=== PATIENT | female | born 1935 | race Caucasian/White ===

== ENCOUNTER 2023-05-29 15:05 | Emergency (ER) | payer OTHER, SELFPAY ==
[2023-05-29] VITALS (9 sets, daily range): BP systolic 107–183; BP diastolic 65–79
--- NOTE | 2023-05-29 17:02 | ED.GENMED ---
History of Present Illness
<Edyta Narayanan REAL ESTATE DEVELOPMENT MANAGER - Last Filed: 05/29/23 18:31>
General
Chief Complaint: Back Pain
Source: patient and spouse
Exam Limitations: none
Time Seen by Provider: 05/29/23 17:02
Nursing documentation reviewed up to this point in time: agreed with
Travel History
Have you had any contact with someone who has COVID-19?: No
Do you have any symptoms of coronavirus? Fever > 100 degrees, chills, cough, shortness of breath, sore throat, loss of taste or smell, muscle aches, or headache?: No
History of Present Illness
History of Present Illness:
87 yo female w h/o sleep apnea on CPAP, [place], CABG, Aortic Valve repair 2013, GERD, presents stating for past 2 days has had recurring mid back pains 'like when you eat ice cream too fast,' gets it several times throughout the day. Also intermittent
fleeting lightheadedness, intermittent nausea, indigestion immediately after eating anything (relieved with sips of Sambucca), intermittent pressure across upper chest, intermittent 'strange feeling in both my arms, I can't describe it, it's very
weird.'
Pt states all symptoms do not seem related or at same time as the other. Last episode of symptoms was 40 minutes ago in the waiting room with 'indigestion, nausea, burping with a few minutes of back pain.
Pt states she is asymptomatic now.
Past History
<Edyta Narayanan REAL ESTATE DEVELOPMENT MANAGER - Last Filed: 05/29/23 18:31>
Past History
ED Past Medical History: CAD, GERD (7 yrs ago, just started bothering her again 2 days ago.), HTN, Hypercholesterolemia, [place], Valvular disease and Other (Sleep apnea on CPAP)
ED Past Surgical History: Cardiac (Aortic valve replaced), Gynecological and Tonsilectomy
Social History
Tobacco: Non-smoker
Alcohol: None
Personal:
Living: with family
Employment: Retired
Family History
Family History: Other
Review of Systems
<Edyta Narayanan, REAL ESTATE DEVELOPMENT MANAGER - Last Filed: 05/29/23 18:31>
Review of Systems
Allergies reviewed?: Yes
All Other Systems: ROS reviewed and negative except as documented in HPI and ROS
Constitutional: Denies fever or fatigue
Respiratory: Denies trouble breathing
Cardiac: Reports chest pain (Intermittent past 2 days); Denies diaphoresis, palpitations or syncope
ABD/GI: Reports nausea (Anytime she eats anything); Denies abdominal pain, vomiting, diarrhea, constipated, bloody stools, black stools or anorexia
: Denies dysuria or difficulty voiding
Musculoskeletal: Reports no symptoms; Denies edema or neck pain
Skin: Reports no symptoms
Neurological: Reports other (Fleeting episodes of lightheadedness past 2 days); Denies headache or weakness
Phy Exam
<Edyta V. Lady, REAL ESTATE DEVELOPMENT MANAGER - Last Filed: 05/29/23 18:31>
Physical Exam
Physical Exam:
GENERAL: No acute distress. A&Ox3.
CONSTITUTIONAL: Afebrile.
EYES: PERRL, conjunctivae normal
Neck: Supple
ENMT: moist mucus membranes, Pharynx nl
RESPIRATORY: Regular respirations, nonlabored, lungs clear.
CARDIOVASCULAR: Regular rate and rhythm, no murmurs, no rubs. Equal radial and pedal pulses. BP equal bilaterally.
GI: Soft, nontender, normal BS
MUSCULOSKELETAL: Moves with ease. Well perfused. No edema
SKIN: Warm, dry, pink
PSYCH: Normal mood and affect. Well kept, interactive and appropriate
NEUROLOGIC: Awake, alert and oriented. No focal neurological deficits
Course
<Edyta Narayanan, REAL ESTATE DEVELOPMENT MANAGER - Last Filed: 05/29/23 18:31>
Orders/Labs/Results
Orders:
Orders
05/29/23 15:15
EKG [Electrocardiogram (*1)] Urgent
Reason for Study: Chest Pain
EKG- Treatment ONCE
05/29/23 17:00
Complete Blood Count/With Diff Urgent
Comprehensive Metabolic Panel Urgent
Lipase Urgent
Comment: ADDON
NT-proBNP Urgent
PTT Urgent
Troponin I Urgent
05/29/23 17:46
CT Chest/abd/pelvis Angio W/wo Urgent
Comment:
Reason For Exam: thoracic pain, pain down both arms
05/29/23 18:03
Add On- LAB Urgent
Tests Added?: lipase
05/29/23 20:30
Mag Hydrox/Al Hydrox/Simeth [Maalox] 30 ml Phenobarb/Hyoscy/Atropine/Scop [] 10 ml PO NOW
05/29/23 20:32
Mag Hydrox/Al Hydrox/Simeth [Maalox] 30 ml .ROUTE .STK-MED ONE
Phenobarb/Hyoscy/Atropine/Scop [] 10 ml .ROUTE .STK-MED ONE
Abnormal Lab Results
05/29/23
17:00
BUN 22 H mg/dl
(7-17)
Glucose 126 H mg/dl
(70-99)
05/29/23 17:00
05/29/23 17:00
Vital Signs
Initial and Last Documented VS:
Initial Vital Signs
Temp Pulse Resp BP Pulse Ox
97.8 F 65 18 107/77 98
05/29/23 15:12 05/29/23 15:12 05/29/23 15:12 05/29/23 15:12 05/29/23 15:12
Last Documented Vital Signs
Temp Pulse Resp BP Pulse Ox
97.8 F 68 18 178/79 98
05/29/23 15:12 05/29/23 20:17 05/29/23 20:17 05/29/23 20:17 05/29/23 20:17
<Osvaldo Jose, DO - Last Filed: 05/29/23 20:41>
Orders/Labs/Results
Orders:
Orders
05/29/23 15:15
EKG [Electrocardiogram (*1)] Urgent
Reason for Study: Chest Pain
EKG- Treatment ONCE
05/29/23 17:00
Complete Blood Count/With Diff Urgent
Comprehensive Metabolic Panel Urgent
Lipase Urgent
Comment: ADDON
NT-proBNP Urgent
PTT Urgent
Troponin I Urgent
05/29/23 17:46
CT Chest/abd/pelvis Angio W/wo Urgent
Comment:
Reason For Exam: thoracic pain, pain down both arms
05/29/23 18:03
Add On- LAB Urgent
Tests Added?: lipase
05/29/23 20:30
Mag Hydrox/Al Hydrox/Simeth [Maalox] 30 ml Phenobarb/Hyoscy/Atropine/Scop [] 10 ml PO NOW
05/29/23 20:32
Mag Hydrox/Al Hydrox/Simeth [Maalox] 30 ml .ROUTE .STK-MED ONE
Phenobarb/Hyoscy/Atropine/Scop [] 10 ml .ROUTE .STK-MED ONE
Abnormal Lab Results
05/29/23
17:00
BUN 22 H mg/dl
(7-17)
Glucose 126 H mg/dl
(70-99)
05/29/23 17:00
05/29/23 17:00
Vital Signs
Initial and Last Documented VS:
Initial Vital Signs
Temp Pulse Resp BP Pulse Ox
97.8 F 65 18 107/77 98
05/29/23 15:12 05/29/23 15:12 05/29/23 15:12 05/29/23 15:12 05/29/23 15:12
Last Documented Vital Signs
Temp Pulse Resp BP Pulse Ox
97.8 F 68 18 178/79 98
05/29/23 15:12 05/29/23 20:17 05/29/23 20:17 05/29/23 20:17 05/29/23 20:17
<Edyta Narayanan REAL ESTATE DEVELOPMENT MANAGER - Last Filed: 05/29/23 18:31>
MDM/Problems Addressed
Differential Diagnosis Includes:
AK, AAA, GERD, esophageal spasms, esophagitis
MDM/Problems Addressed:
87 yo female w h/o sleep apnea on CPAP, [place], CABG, Aortic Valve repair 2013, GERD, presents stating for past 2 days has had recurring mid back pains 'like when you eat ice cream too fast,' gets it several times throughout the day. Also intermittent
fleeting lightheadedness, intermittent nausea, indigestion immediately after eating anything (relieved with sips of Sambucca), intermittent pressure across upper chest, intermittent 'strange feeling in both my arms, I can't describe it, it's very
weird.'
Pt states all symptoms do not seem related or at same time as the other. Last episode of symptoms was 40 minutes ago in the waiting room with 'indigestion, nausea, burping with a few minutes of back pain.
Pt states she is asymptomatic now.
NAD
EKG NSR, no change from last
05/29/2023 1743 PM
CBC normal
CMP normal save for mildly elevated BUN at 22
Chest abdomen [address] with/without IV contrast pending
Case discussed with Dr. Jose who will assume care from this point
Chronic conditions affecting care:
sleep apnea, GERD
Chronic conditions affecting care: Other (Aortic valve repair, CABG 2013)
<Edyta Narayanan, REAL ESTATE DEVELOPMENT MANAGER - Last Filed: 05/29/23 18:31>
*Pulse Oximetry
Patient hypoxic: no
*EKG
EKG Intrepretation Date: 05/29/23
Interpretation: normal
Comparison EKG: no changes
Heart Rate: 69
Rate: normal
Rhythm: sinus
[place]: normal axis
Interval: normal interval
Ischemia: no ischemia
<Osvaldo Jose, DO - Last Filed: 05/29/23 20:41>
*Critical Care Note
Total Time (30-74mins, 75-104mins- exclusive of procedures): Not Applicable
<Osvaldo Jose, DO - Last Filed: 05/29/23 20:41>
Update Note
Update Note:
[address] scan noted troponin noted symptoms on and off for 2 days patient states her symptoms returned almost immediately after eating a sandwich feels like her brain feels in her back we will try some Maalox and
8:39 PM patient feeling better
ED Attending Note
<Edyta Narayanan REAL ESTATE DEVELOPMENT MANAGER - Last Filed: 05/29/23 18:31>
-
Portions of this chart may have been created with voice recognition software.� Occasional wrong word or��sound alike� substitutions may have occurred due to the inherent limitations of voice recognition software.
<Osvaldo Jose, - Last Filed: 05/29/23 20:41>
ED Attending Note
Patient seen and examined by attending physician: Yes
I performed the substantive portion of visit, reviewed & personally made and approve the management plan that is documented in note by myself or MOOKIE.: Yes
ED Attending Note:
Seen with nurse practitioner. Agree with assessment and plan 87-year-old female CAD status post stenting and AVR intermittent back and arm pain chest pain looks well here asymptomatic here we will check troponin CT angiogram of the chest
Discharge Plan
Departure
Patient Disposition: Home (Routine Discharge)
Date of Disposition: 05/29/23
Time of Disposition: 20:39
Patient with high blood pressure during this ER visit?: No
Condition: Good
Discharge Problem:
Back pain, Gastritis
Instructions: Ulcer and Gastritis Diet, Gastritis ED, Back Pain
Prescriptions:
New
alum-mag hydroxide-simeth [Maalox Advanced] 200-200-20 mg/5 mL suspension
15 ml PO QID PRN (Reason: indigestion) Qty: 3000 0RF
No Action
cholecalciferol (vitamin D3) [Vitamin D3] 2,000 UNIT capsule
2,000 unit PO DAILY
acetaminophen [Tylenol Extra Strength] 500 MG tablet
500 mg PO PRN PRN (Reason: pain)
tobramycin 1 DROP drops
1 drp RIGHT EYE Q8
clopidogrel 75 MG tablet
75 mg PO DAILY Qty: 30 2RF
furosemide 80 MG tablet
20 - 40 mg PO DAILY
Patient Comments:
Dose according to weight
diphenhydramine HCl [Benadryl] 25 MG capsule
25 mg PO PRN PRN (Reason: NEEDED FOR SLEEP)
fluticasone furoate [Veramyst] 10 GM spray,suspension
2 spray intranasal PRN PRN (Reason: NEEDED FOR CONGESTION)
clindamycin HCl 300 MG capsule
600 mg PO PRN PRN (Reason: before dental procedure)
cyanocobalamin (vitamin B-12) 1,000 MCG tablet
1,000 mcg PO DAILY
Polytrim Eye Drops
1 drp APPLIC .LEFT EYE
potassium chloride [Klor-Con M20] 20 MEQ tablet,ER particles/crystals
10 meq PO DAILY
Referrals:
NONE,* [Family Provider] -
Interventions
Interventions:
*Risk Screen - Suicide Last Done: 05/29/23 17:19
*General Assessment Last Done: 05/29/23 15:12
*Neglect/Abuse Screening Last Done: 05/29/23 17:19
ED- Fall Risk Assessment Last Done: 05/29/23 17:19
*ED COVID-19 Vaccine History Last Done: 05/29/23 15:12
[2023-05-29 17:11] LABS: % Basophils 1.1 % (0-2); % Eosinophils 1.5 % (0-6); % Immature Granulocytes 0.5 % (0-0.5); % Lymphocytes 25.4 % (20.5-51.1); % Neutrophils 64.5 % (42.2-75.2); Absolute Basophils 0.1 10^3/uL (0-0.2); Absolute Eosinophils 0.1 10^3/uL (0-0.7); Absolute Lymphocytes 1.6 10^3/uL (1.2-3.4); Absolute Monocytes 0.4 10^3/uL (0.1-0.6); Absolute Neutrophils 3.9 10^3/uL (1.4-6.5); Hematocrit 44.3 % (37.0-47.0); Hemoglobin 15.1 g/dL (12.0-16.0); Mean Corp Hgb Conc. 34.1 g/dL (33.0-37.0); Mean Corpuscular Hgb 30.6 pg (27.0-31.0); Mean Corpuscular Volume 89.7 fL (81.0-99.0); Nucleated Red Blood Cells % 0 %; Red Blood Cell Count 4.94 10^6/uL (4.20-5.40); Red Cell Dist. Width 13.6 % (11.5-14.5); White Blood Cell Count 6.1 10^3/uL (4.8-10.8)
[2023-05-29 17:26] LABS: APTT 25.6 Sec (23.4-35.0)
[2023-05-29 17:28] LABS: ALT (SGPT) 17 U/L (0-35); AST (SGOT) 31 U/L (14-36); Albumin 4.1 g/dl (3.5-5.0); Alkaline Phosphatase 62 U/L (38-126); Blood Urea Nitrogen 22 mg/dl (7-17); Calcium 9.8 mg/dl (8.4-10.2); Carbon Dioxide 30 mmol/L (22-30); Chloride 100 mmol/L (98-107); Glucose 126 mg/dl (70-99); Potassium 4.1 mmol/L (3.5-5.1); Sodium 138 mmol/L (135-145); Total Bilirubin 0.7 mg/dl (0.2-1.3); Total Protein 7.3 g/dl (6.3-8.2); eGFR > 60.00
[2023-05-29 17:39] LABS: Mean Platelet Volume 9.7 fL (7.4-10.4); NT-proBNP 406 pg/ml; Platelet Count 205 10^3/uL (130-400); Troponin I < 0.012 ng/ml
[2023-05-29 18:28] LABS: Lipase 63 U/L (23-300)
[2023-05-29] MEDS: MAALOX 40 PO (20:34)
== END 2023-05-29 20:48 | disposition home or self-care (01) ==
LOC: EMR 15:05
PROVIDERS: Emergency Medicine; EMERGENCY PHYSICIAN Emergency Medicine
DX: M54.6 Pain in thoracic spine (principal); K29.70 Gastritis, unspecified, without bleeding; R07.9 Chest pain, unspecified; R42 Dizziness and giddiness; K21.00 Gastro-esophageal reflux disease with esophagitis, without bleeding; I25.10 Atherosclerotic heart disease of native coronary artery without angina pectoris; I10 Essential (primary) hypertension; I25.2 Old myocardial infarction; G47.30 Sleep apnea, unspecified
CPT/HCPCS: 99285; 71275; 74174; 80053; 83690; 83880; 84484; 85025; 85730; 93005; Q9967

== ENCOUNTER → 2023-09-01 16:47 | Outpatient (REF) | payer OTHER, SELFPAY | LOC: RCS 16:47 | PROVIDERS: ATTENDING PHYSICIAN Family Medicine | DX: I25.10 Atherosclerotic heart disease of native coronary artery without angina pectoris (principal); I25.2 Old myocardial infarction; Z95.2 Presence of prosthetic heart valve; I35.0 Nonrheumatic aortic (valve) stenosis | CPT/HCPCS: 93306 ==

== ENCOUNTER → 2024-01-07 13:53 | Outpatient (REF) | payer OTHER, SELFPAY | LOC: WDC 13:53 | PROVIDERS: ATTENDING PHYSICIAN Family Medicine | DX: Z12.31 Encounter for screening mammogram for malignant neoplasm of breast (principal); Z78.0 Asymptomatic menopausal state | CPT/HCPCS: 77063; 77067; 77080 ==

== ENCOUNTER → 2024-05-22 09:50 | Outpatient (REF) | payer OTHER, SELFPAY | LOC: WDC 09:50 | PROVIDERS: ATTENDING PHYSICIAN Family Medicine | DX: N64.52 Nipple discharge (principal) | CPT/HCPCS: 76642; 77061; 77065 ==

== ENCOUNTER → 2024-08-21 11:01 | Outpatient (REF) | payer OTHER, SELFPAY | LOC: RCS 11:01 | PROVIDERS: ATTENDING PHYSICIAN Student in an Organized Health Care Education/Training Program; FAMILY PHYSICIAN Family Medicine | DX: Z95.2 Presence of prosthetic heart valve (principal) | CPT/HCPCS: 93306 ==

== ENCOUNTER → 2024-09-15 13:08 | Outpatient (REF) | payer OTHER, SELFPAY | LOC: RAD 13:08 | PROVIDERS: ATTENDING PHYSICIAN Family Medicine | DX: R05.3 Chronic cough (principal); R53.83 Other fatigue | CPT/HCPCS: 71046 ==

== ENCOUNTER → 2025-01-18 13:15 | Outpatient (REF) | payer OTHER, SELFPAY | LOC: WDC 13:15 | PROVIDERS: ATTENDING PHYSICIAN Family Medicine | DX: Z12.31 Encounter for screening mammogram for malignant neoplasm of breast (principal) | CPT/HCPCS: 77063; 77067 ==

== ENCOUNTER 2025-03-25 04:09 | Emergency (ER) | payer OTHER, SELFPAY ==
[2025-03-25 04:11] VITALS: BP 128/67
--- NOTE | 2025-03-25 04:14 | ED.GENMED ---
History of Present Illness
General
Chief Complaint: Heart Rate Problem
Source: patient
Exam Limitations: none
Time Seen by Provider: 03/25/25 04:10
History of Present Illness
History of Present Illness:
See MDM
Past History
Past History
ED Past Medical History: CAD, GERD (7 yrs ago, just started bothering her again 2 days ago.), HTN, Hypercholesterolemia, [place], Valvular disease and Other (Sleep apnea on CPAP)
ED Past Surgical History: Cardiac (Aortic valve replaced), Gynecological and Tonsilectomy
Social History
Tobacco: Non-smoker
Alcohol: None
Personal:
Living: with family
Employment: Retired
Family History
Family History: Other
Phy Exam
Physical Exam
Physical Exam:
See MDM
Course
Orders/Labs/Results
Orders:
Orders
03/25/25
Electrocardiogram (*1) Stat
Comment: DONE
03/25/25 04:15
Electrocardiogram (*1) Urgent
Reason for Study: Hypertension, Benign
EKG- Treatment ONCE
03/25/25 04:17
Complete Blood Count/With Diff Urgent
Comprehensive Metabolic Panel Urgent
Magnesium Urgent
03/25/25 04:18
Troponin I Urgent
03/25/25 06:35
Troponin I Urgent
Abnormal Lab Results
03/25/25
04:17
MCHC 32.1 L g/dL
(33.0-37.0)
Immature Gran % 0.6 H %
(0-0.5)
BUN 29 H mg/dl
(7-17)
Glucose 116 H mg/dl
(70-99)
Alkaline Phosphatase 131 H U/L
(38-126)
03/25/25 04:17
03/25/25 04:17
Vital Signs
Initial and Last Documented VS:
Initial Vital Signs
Temp Pulse Resp BP Pulse Ox
97.8 F 88 16 128/67 94
03/25/25 04:11 03/25/25 04:11 03/25/25 04:11 03/25/25 04:11 03/25/25 04:11
Last Documented Vital Signs
Temp Pulse Resp BP Pulse Ox
97.8 F 74 24 118/47 94
03/25/25 04:11 03/25/25 07:30 03/25/25 07:45 03/25/25 07:00 03/25/25 07:45
MDM/Problems Addressed
Differential Diagnosis Includes:
Note:
CHIEF COMPLAINT(S)
Palpitations and abnormal sensation in the arms.
HISTORY OF PRESENT ILLNESS
The patient is an 89-year-old female with no known history of atrial fibrillation, who presented with complaints of a sensation of rapid heart rate, described as 'heart racing' starting at approximately 3:00 AM. The palpitations were accompanied by
an unusual sensation in the arms. She attempted to sleep, during which she noticed the symptoms more acutely, especially when lying on her side. The episode lasted about 15 minutes. There was also a report of leg cramps. The patient has not
experienced similar palpitations before. She had called EMS when the sensation was happening. However, on arrival, all symptoms have resolved
PHYSICAL EXAM
General: Alert, no acute distress.
Skin: Warm, dry.
Head: Normocephalic, atraumatic
Neck: Appears supple, trachea midline.
Eyes, Ears, Nose, Mouth, and Throat: Moist mucous membranes
Cardiovascular: No signs of cyanosis. Regular rate and rhythm
Respiratory: Respirations are non-labored.
Abdomen: Non-distended
Musculoskeletal: No deformities. No leg edema or tenderness
Neurological: No focal neurological deficit observed.
Psychiatric: Cooperative, appropriate mood and affect.
PLAN
The patient will undergo an Electrocardiogram (EKG) and blood tests. She will be monitored for recurrence of symptoms. If the initial tests are normal, she will be advised to follow up with her regular physician for a heart monitor to detect any
recurrent episodes.
DIFFERENTIAL DIAGNOSIS
The Differential Diagnosis includes, in no particular order and is not limited to:
- Atrial fibrillation
- Supraventricular tachycardia
- Anxiety-related palpitations
- Electrolyte imbalance
- Hyperthyroidism
- Premature ventricular contractions
- Concomitant electrolyte disturbance causing muscle cramps
- Coronary artery disease
- Transient ischemic attack
- Peripheral neuropathy
SUMMARY OF ENCOUNTER
The patient, an 89-year-old female, was seen in the emergency department due to palpitations and a strange sensation in her arms occurring early in the morning. The main concern was the possibility of an arrhythmia, such as atrial fibrillation.
Initial management included monitoring and checking an EKG, with a plan for potential further investigation via a heart monitor on outpatient follow-up if initial studies are normal.
MEDICAL DECISION MAKING
-Complexity of Data Reviewed: Chronic conditions affecting care. The Differential Diagnosis includes, in no particular order and is not limited to: Atrial fibrillation, Supraventricular tachycardia, Anxiety-related palpitations, Electrolyte
imbalance, Hyperthyroidism, Premature ventricular contractions, Concomitant electrolyte disturbance causing muscle cramps, Coronary artery disease, Transient ischemic attack, Peripheral neuropathy.
-Data:
Category 1
- EKG ordered.
Category 3
- Consideration of a heart monitor for outpatient follow-up.
*Pulse Oximetry
Patient hypoxic: no
*Critical Care Note
Total Time (30-74mins, 75-104mins- exclusive of procedures): Not Applicable
ED Attending Note
-
Portions of this chart may have been created with voice recognition software.� Occasional wrong word or��sound alike� substitutions may have occurred due to the inherent limitations of voice recognition software.
Discharge Plan
Departure
Patient Disposition: Home (Routine Discharge)
Date of Disposition: 03/25/25
Time of Disposition: 07:31
Patient with high blood pressure during this ER visit?: No
Discharge Problem:
Heart palpitations
Instructions: Palpitations (DC)
Prescriptions:
No Action
cholecalciferol (vitamin D3) [Vitamin D3] 2,000 UNIT capsule
2,000 unit PO DAILY
acetaminophen [Tylenol Extra Strength] 500 MG tablet
500 mg PO PRN PRN (Reason: pain)
tobramycin 1 DROP drops
1 drp RIGHT EYE Q8
clopidogrel 75 MG tablet
75 mg PO DAILY Qty: 30 2RF
furosemide 80 MG tablet
20 - 40 mg PO DAILY
Patient Comments:
Dose according to weight
diphenhydramine HCl [Benadryl] 25 MG capsule
25 mg PO PRN PRN (Reason: NEEDED FOR SLEEP)
fluticasone furoate [Veramyst] 10 GM spray,suspension
2 spray intranasal PRN PRN (Reason: NEEDED FOR CONGESTION)
clindamycin HCl 300 MG capsule
600 mg PO PRN PRN (Reason: before dental procedure)
cyanocobalamin (vitamin B-12) 1,000 MCG tablet
1,000 mcg PO DAILY
Polytrim Eye Drops
1 drp APPLIC .LEFT EYE
potassium chloride [Klor-Con M20] 20 MEQ tablet,ER particles/crystals
10 meq PO DAILY
alum-mag hydroxide-simeth [Maalox Advanced] 200-200-20 mg/5 mL suspension
15 ml PO QID PRN (Reason: indigestion) Qty: 3000 0RF
Activity Restrictions/Additional Instructions:
Please return for any worsening symptoms.
You may return at any time if you have further concerns.
Please follow up with your doctor at the first available appointment, preferably this week. Please discuss obtaining a Holter monitor.
Thank you for choosing [facility].
Interventions
Interventions:
*Risk Screen - Suicide Last Done: 03/25/25 04:20
*General Assessment Last Done: 03/25/25 04:21
*Neglect/Abuse Screening Last Done: 03/25/25 04:20
*ED- Fall Risk Assessment Last Done: 03/25/25 04:21
*ED COVID-19 Vaccine History Last Done: 03/25/25 04:21
*ED Influenza Vaccine History Last Done: 03/25/25 04:21
*Nursing Disposition Last Done: 03/25/25 08:11
ED- Cardiac Assessment Last Done: 03/25/25 04:23
ED- Pulmonary Assessment Last Done: 03/25/25 04:23
Discharge Date and Time
Discharge Date/Time: 03/25/25 08:12
Print Language: ITALIAN
[2025-03-25 04:23] VITALS: BP 108/66
[2025-03-25 04:26] VITALS: BMI 32.5
[2025-03-25 04:28] LABS: Hematocrit 40.5 % (37.0-47.0); Hemoglobin 13.0 g/dL (12.0-16.0); Mean Corp Hgb Conc. 32.1 g/dL (33.0-37.0); Mean Corpuscular Volume 94.6 fL (81.0-99.0); Nucleated Red Blood Cells % 0 %; Platelet Count 183 10^3/uL (130-400); Red Cell Dist. Width 14.0 % (11.5-14.5)
[2025-03-25 04:41] LABS: ALT (SGPT) 13 U/L (0-35); AST (SGOT) 22 U/L (14-36); Albumin 3.7 g/dl (3.5-5.0); Alkaline Phosphatase 131 U/L (38-126); Blood Urea Nitrogen 29 mg/dl (7-17); Calcium 9.1 mg/dl (8.4-10.2); Carbon Dioxide 29 mmol/L (22-30); Chloride 103 mmol/L (98-107); Estimated Creatinine Clearance 35 ml/min; Glucose 116 mg/dl (70-99); Magnesium 2.1 mg/dl (1.6-2.3); Potassium 3.5 mmol/L (3.5-5.1); Sodium 136 mmol/L (135-145); Total Protein 6.7 g/dl (6.3-8.2); eGFR 54.19
[2025-03-25 04:58] LABS: Troponin I 0.028 ng/ml
[2025-03-25 05:00] VITALS: BP 92/66
[2025-03-25 06:00] VITALS: BP 133/64
[2025-03-25 07:00] VITALS: BP 118/47
[2025-03-25 07:25] LABS: Troponin I 0.027 ng/ml
== END 2025-03-25 08:12 | disposition home or self-care (01) ==
LOC: EMR 04:09
PROVIDERS: EMERGENCY PHYSICIAN Student in an Organized Health Care Education/Training Program; FAMILY PHYSICIAN Family Medicine
DX: R00.2 Palpitations (principal); I25.10 Atherosclerotic heart disease of native coronary artery without angina pectoris; I10 Essential (primary) hypertension; E78.00 Pure hypercholesterolemia, unspecified; I25.2 Old myocardial infarction; G47.30 Sleep apnea, unspecified; K21.9 Gastro-esophageal reflux disease without esophagitis; Z79.02 Long term (current) use of antithrombotics/antiplatelets; Z95.2 Presence of prosthetic heart valve
CPT/HCPCS: 99284; 80053; 83735; 84484; 85025; 93005

== ENCOUNTER → 2025-04-09 10:02 | Outpatient (REF) | payer OTHER, SELFPAY | LOC: RCS 10:02 | PROVIDERS: ATTENDING PHYSICIAN Family Medicine | DX: R00.2 Palpitations (principal) | CPT/HCPCS: 93225; 93226 ==